=== PATIENT | female | born 1990 | race American Indian/Alaskan Native ===

== ENCOUNTER 2021-11-21 22:14 | Emergency (ER) | payer OTHER ==
[2021-11-21] MEDS ORDERED: Bacitracin Oint 1 GM U/D Packet TOP ONE (22:58)
[2021-11-21] MEDS ORDERED: Diphtheria,Pertussis(Acell),Tetanus Vaccine 0.5 ML Syringe IM ONE (22:58)
[2021-11-21 23:59] VITALS: BP 133/87; PULSE 83
== END 2021-11-21 23:25 | disposition home or self-care (01) ==
LOC: FB.ED 22:14
DX: T22.232A Burn of second degree of left upper arm, initial encounter (principal); Z23 Encounter for immunization; X08.8XXA Exposure to other specified smoke, fire and flames, initial encounter
CPT/HCPCS: 90471; 90715; 99283-25

== ENCOUNTER 2022-08-05 20:02 | Emergency (ER) | payer OTHER ==
[2022-08-05 20:24] VITALS: BP 137/95; PULSE 100
[2022-08-05 20:58] LABS: BASOPHILS PERCENT AUTO 0.3 % (0.2-1.5); EOSINOPHILS ABSOLUTE AUTO 0.1 x10-3/uL (0.0-0.8); EOSINOPHILS PERCENT AUTO 1.4 % (0.6-8.1); HEMATOCRIT 40.2 % (34.2-48.2); HEMOGLOBIN 13.5 g/dL (11.4-15.5); LYMPHOCYTES ABSOLUTE AUTO 1.9 x10-3/uL (1.0-4.4); LYMPHOCYTES PERCENT AUTO 18.8 % (18.4-52.1); MEAN CORPUSCULAR HEMOGLOBIN 29.3 pg (23.9-33.9); MEAN CORPUSCULAR HGB CONC 33.4 g/dL (31.9-34.8); MEAN CORPUSCULAR VOLUME 87.5 fL (76.7-100.5); MEAN PLATELET VOLUME 8.2 fL (7.1-12.4); MONOCYTES ABSOLUTE AUTO 0.5 x10-3/uL (0.3-1.0); MONOCYTES PERCENT AUTO 4.8 % (4.4-15.7); NEUTROPHILS ABSOLUTE AUTO 7.4 x10-3/uL (1.5-6.3); NEUTROPHILS PERCENT AUTO 74.7 % (30.8-76.2); PLATELET COUNT,PLT 323 x10(3)uL (151-488); RED CELL DISTRIBUTION WIDTH 13.6 % (12.3-16.5); WHITE BLOOD CELL COUNT,WBC 9.9 x10-3/uL (3.0-10.3)
[2022-08-05 21:02] LABS: BLOOD UREA NITROGEN,BUN 11 mg/dL (7-18); BUN/CREATININE RATIO 15.7 (9-20); CALCIUM 9.1 mg/dL (8.6-10.2); CARBON DIOXIDE,CO2 29 mmol/L (21-32); CHLORIDE,CL 104 mmol/L (100-110); CREATININE 0.7 mg/dL (0.55-1.02); EST CRCL DRUG DOSING (CG) 113.24 mL/min; ESTIMATED GFR 119 mL/min (>60); GLUCOSE RANDOM 101 mg/dL (80-116); POTASSIUM,K 3.5 mmol/L (3.5-5.3); SODIUM,NA 140 mmol/L (135-145)
== END 2022-08-05 21:31 | disposition home or self-care (01) ==
LOC: MERGE 20:02 → FB.ED 20:02
DX: R06.02 Shortness of breath (principal); Z72.0 Tobacco use
CPT/HCPCS: 36415; 71046; 80048; 83880; 84484; 85025; 85379; 93005; 93010; 99283; 99284

== ENCOUNTER 2022-11-04 18:27 | Emergency (ER) | payer OTHER ==
[2022-11-04 18:47] VITALS: BP 134/89; PULSE 87
[2022-11-04] MEDS ORDERED: Ibuprofen 800 MG Tab PO ONE (18:48)
[2022-11-04] MEDS ORDERED: Acetaminophen 500 MG Tab PO ONE (18:48)
[2022-11-07] MEDS ORDERED: Ondansetron 4 MG Tab.DIS PO ONE (10:04)
== END 2022-11-04 19:05 | disposition home or self-care (01) ==
LOC: FB.ED 18:27
DX: S69.91XA Unspecified injury of right wrist, hand and finger(s), initial encounter (principal)
CPT/HCPCS: 99283; A9270